=== PATIENT | female | born 1955 | race Caucasian/White ===

== ENCOUNTER 2016-05-03 06:32 | Day surgery (SDC) | payer OTHER ==
[2016-05-02 10:43] VITALS: BMI 21.2
[~2016-05-03 06:32] MED LIST: ALPRAZolam 0.25 MG TAB PO PRN; ALPRAZolam 0.5 MG TAB PO PRN; ASPIRIN 325 MG TAB PO STA; ATORVASTATIN 80 MG TAB PO STA; NITROGLYCERIN SL TABS 0.4 MG TAB SUBLINGUAL PRN; SODIUM CHLORIDE 0.9% 1,000 ML in EMPTY BAG 1 BAG IV ONE
[2016-05-03 07:04] LABS: Glucose,Whole Blood 208 mg/dL (75-99)
[2016-05-03] MEDS ORDERED: INSULIN LISPRO (humaLOG) 300 UNIT/3 ML VIAL SQ ONE ×2 (07:12→12:17)
[2016-05-03] MEDS ORDERED: LIDOCAINE 2% INJ 20 MG/ML (20 ML MDV) ONE (07:18)
[2016-05-03] MEDS ORDERED: VERAPAMIL 2.5 MG/ML 2 ML AMP ONE (07:18)
[2016-05-03] MEDS ORDERED: fentaNYL (PF) 50 MCG/ML 2 ML AMP ONE (07:44)
[2016-05-03] MEDS ORDERED: HEPARIN SODIUM 1,000 UNIT/ML VIAL ONE (07:46)
[2016-05-03] MEDS ORDERED: fentaNYL (PF) 50 MCG/ML 2 ML AMP IV ONE (07:47)
[2016-05-03] MEDS ORDERED: LIDOCAINE 2% INJ 20 MG/ML SQ ONE (07:48)
[2016-05-03] MEDS ORDERED: MIDAZOLAM 2 MG/2 ML VIAL ONE (07:49)
[2016-05-03] MEDS ORDERED: VERAPAMIL SYRINGE (5 MG/10 ML) INTRAARTER ONE (07:50)
[2016-05-03] MEDS ORDERED: MIDAZOLAM 2 MG/2 ML VIAL IVP ONE (07:51)
[2016-05-03] MEDS ORDERED: NITROGLYCERIN 1000MCG/10ML SYRINGE INTRACORON ONE (08:08)
[2016-05-03] MEDS ORDERED: ADENOSINE 90 MG in SODIUM CHLORIDE 0.9% 60 ML IVP ONE (08:13)
[2016-05-03] MEDS ORDERED: IOHEXOL 350 MG/ML 100 ML BOTTLE INJ ONE (08:20)
[2016-05-03] MEDS ORDERED: SODIUM CHLORIDE 0.9% 1,000 ML IV ONE (08:20)
[2016-05-03 08:39] LABS: Glucose,Whole Blood 190 mg/dL (75-99)
[2016-05-03] MEDS ORDERED: RX INFO: IV CONTRAST WAS GIVEN 1 EACH MISC MISCELLANE PRN (08:41)
[2016-05-03] MEDS ORDERED: IPRATROPIUM-ALBUTEROL 3 ML NEB INHALATION PRN (08:42)
[2016-05-03] MEDS ORDERED: SODIUM CHLORIDE 0.9% 1,000 ML IV SCH (08:45)
[2016-05-03] MEDS ORDERED: LOSARTAN 25 MG TAB PO SCH (09:00)
[2016-05-03 11:50] VITALS: PULSE 90; RESP 20
[2016-05-03 12:03] LABS: Glucose,Whole Blood 256 mg/dL (75-99)
[2016-05-03 14:54] VITALS: BP 127/74
--- NOTE | 2016-05-03 21:20 | CC ---
DATE OF SERVICE: Mrs. Manley is a 60-year-old female with known history of hypertension, hyperlipidemia, diabetes mellitus, chronic tobacco use, who presented with symptoms of chest discomfort, exertional in pattern, in the cold weather while walking. She underwent stress echocardiogram that revealed borderline EKG changes. Because of the persistent symptoms, recommendation was made regarding cardiac catheterization. The procedure as well as risks and complications were discussed with the patient, who was in full understanding and agreement. PROCEDURE: Patient was brought to the clinical laboratory aides teacher in a fasting semi-sedated state after receiving fentanyl and Benadryl and achieving moderate conscious sedation state. Using Xylocaine anesthesia and Seldinger technique, a 6 Hungarian sheath was introduced in the right radial artery. Selective right and left coronary angiography was performed using 5 Hungarian 3-1/2 Bend, right and left Lila catheters. Multiple views of the coronary arteries, including hemiaxial views, were obtained. Following that, a 5 Hungarian tight pigtail catheter was introduced in the left ventricle and a 30-degree MCDANIEL view of the left ventricle was obtained. Following that, a 6 Hungarian FR4 guiding catheter was introduced into the system. After cannulating the right coronary ostium, a Doppler flow wire was introduced in the right coronary artery, positioned distally, and adenosine infusion intravenously per protocol was performed. Fraction flow reserve was calculated. Following that, catheter and sheaths were removed. Hemostasis was obtained with deployment of a TR band. There was no immediate complication. Patient was returned to her room in stable condition. Of note, patient received a total of 5000 units of intravenous heparin as well as intra-arterial Verapamil. There was no immediate complication. FINDINGS LEFT MAIN: This is a large-sized vessel bifurcating into left circumflex and left anterior descending artery. Left main coronary artery is without any obstructive disease. LEFT ANTERIOR DESCENDING CORONARY ARTERY: This is a large-sized vessel giving rise to a large diagonal branch. The left anterior descending artery in mid segment tapers down distally. It does not reach the apex. The LAD and its branches have no evidence of obstructive coronary artery disease. LEFT CIRCUMFLEX: This is a large non-dominant vessel giving rise to a large obtuse marginal branch. The left circumflex as well as its branches has no evidence of obstructive coronary artery disease. RIGHT CORONARY ARTERY: This is a large dominant vessel bifurcating into PDA and posterolateral segment and branches. The right PDA reaches toward the inferoapical wall. The right coronary artery in its mid segment has a long tubular lesion with an area of stenosis up to 50% to 60%. The rest of the vessel has no high-grade stenosis. LEFT VENTRICULOGRAM: Left ventriculogram was performed in 30-degree MCDANIEL view and revealed normal left ventricular size and systolic function. FRACTION FLOW RESERVE: Fraction flow reserve was measured at 88%. CONCLUSION: 1. Moderate disease in the long segment of the mid right coronary artery. 2. Normal left ventricular size and systolic function. 3. Lesion in the mid right coronary artery, not hemodynamically significant. RECOMMENDATION: Patient will be continued on aggressive coronary risk factor modifications with close followup of her right coronary artery lesion. Those findings and recommendations were discussed with the patient and her family, who were in full understanding and agreement. Duration of the procedure was 32 minutes.
--- NOTE | 2016-05-03 21:23 | LTR ---
May 03, 2016 RE: SindhuManju Dear Dr. Brewer, I had the pleasure of performing cardiac catheterization on Mrs. Manley at [facility] on May 03, and a full copy of the procedure note will be forwarded to you. In brief, she was found to have a moderate lesion in the mid right coronary artery with normal circumflex and LAD. Based on those findings, I proceeded to obtain fraction flow reserve of the mid right coronary artery that showed a lesion that was not hemodynamically significant. Based on those findings, I have recommended continued medical therapy with the aggressive coronary risk factor modifications you have initiated. Thank you again for allowing me to participate in her care. Please feel to call with any questions. Sincerely, KIAH WHIPPLE MD
[2016-05-04] MEDS ORDERED: ATORVASTATIN 20 MG TAB PO SCH (09:00)
[2016-05-04] MEDS ORDERED: NICOTINE 14MG/24HR PATCH TRANSDERM SCH (09:00)
[2016-05-04] MEDS ORDERED: ASPIRIN 81 MG CHEW PO SCH (09:00)
== END 2016-05-03 14:05 | disposition home or self-care (01) ==
LOC: CATHCVL 06:32
PROVIDERS: ATTEND Internal Medicine Interventional Cardiology
DX: I25.10 Atherosclerotic heart disease of native coronary artery without angina pectoris (principal); I10 Essential (primary) hypertension; Z82.49 Family history of ischemic heart disease and other diseases of the circulatory system; E78.2 Mixed hyperlipidemia; F17.210 Nicotine dependence, cigarettes, uncomplicated; E11.9 Type 2 diabetes mellitus without complications; Z79.84 Long term (current) use of oral hypoglycemic drugs; Z79.82 Long term (current) use of aspirin; Z79.899 Other long term (current) drug therapy; Z88.0 Allergy status to penicillin; Z88.2 Allergy status to sulfonamides
CPT/HCPCS: 93571; 93458; 84132; 99152; 99153; C1887; C1894; C1769; J2001; J2250; Q9967; J3010; J1644 ×2; J0153

== ENCOUNTER → 2016-06-05 | Day surgery (SDC) | payer OTHER ==
[2016-05-31 10:40] VITALS: BMI 22.0
[~2016-06-05] MED LIST changes: -ALPRAZolam 0.25 MG TAB PO PRN; -ALPRAZolam 0.5 MG TAB PO PRN; -ASPIRIN 325 MG TAB PO STA; -ATORVASTATIN 80 MG TAB PO STA; +LACTATED RINGERS 1,000 ML IV ONE; +LACTATED RINGERS 1,000 ML IV SCH; -NITROGLYCERIN SL TABS 0.4 MG TAB SUBLINGUAL PRN; +PROPOFOL 10 MG/ML 20 ML VIAL IV ONE; -SODIUM CHLORIDE 0.9% 1,000 ML in EMPTY BAG 1 BAG IV ONE
[2016-06-05 07:26] VITALS: RESP 16
[2016-06-05 07:31] LABS: Glucose,Whole Blood 196 mg/dL (75-99)
--- NOTE | 2016-06-05 08:51 | P.PCN ---
Date of Procedure: 06/05/16 Procedure(s) Performed: Procedure: Total colonoscopy. Preoperative diagnosis: Screening for neoplasia, patient has history of polyps. Postoperative diagnosis: Mild sigmoid diverticulosis with no evidence of acute diverticulitis, strictures, polyps or cancer. Preparation: HalfLytely prep. Sedation: Was provided by anesthesia. Brief clinical history: The patient is a 60-year-old female who is scheduled for this evaluation for screening for neoplasia because of history of adenomatous polyps. Her last exam was in April 2009. At this time, she has no abdominal complaints, bleeding or anemia. Procedure: With the patient on her left lateral decubitus position and after informed consent and adequate sedation, the perianal area was inspected and it did not show any fissures or fistulas. There was significant skin relaxation and redundancy. No masses were felt on digital rectal examination. The Olympus CFQ 160L video colonoscope was then inserted in the rectum in the usual fashion and advanced to the cecum. The mucosa appeared healthy. There was mild sigmoid diverticulosis noted as previously described with no evidence of acute diverticulitis or strictures. No polyps or tumors were seen. I retroflexed the endoscope in the rectum before the endoscope was withdrawn. Low -grade internal hemorrhoids were noted with no evidence of bleeding. The patient tolerated the procedure well. Plan: The patient was reassured. Discussed dietary measures and local care for hemorrhoids. She will follow-up with you as planned and I recommended a repeat exam in 5 years.
[2016-06-05 09:03] VITALS: BP 104/71; PULSE 87
== END ==
LOC: ORWHC2ENDO 07:15
DX: Z12.11 Encounter for screening for malignant neoplasm of colon (principal); Z86.010 Personal history of colon polyps; K64.8 Other hemorrhoids; K57.30 Diverticulosis of large intestine without perforation or abscess without bleeding; I25.10 Atherosclerotic heart disease of native coronary artery without angina pectoris; I10 Essential (primary) hypertension; E78.5 Hyperlipidemia, unspecified; J44.9 Chronic obstructive pulmonary disease, unspecified; F17.200 Nicotine dependence, unspecified, uncomplicated; E11.9 Type 2 diabetes mellitus without complications; Z88.0 Allergy status to penicillin; Z88.2 Allergy status to sulfonamides; Z88.8 Allergy status to other drugs, medicaments and biological substances; Z79.84 Long term (current) use of oral hypoglycemic drugs; Z79.1 Long term (current) use of non-steroidal anti-inflammatories (NSAID); Z79.899 Other long term (current) drug therapy
CPT/HCPCS: J2704; G0105

== ENCOUNTER → 2018-07-12 | Outpatient (CLI) | payer OTHER ==
--- NOTE | 2018-07-12 12:42 | CTL ---
EXAMINATION TYPE: CT Low Dose Lung DATE OF EXAM ORDERED: 07/12/2018 HISTORY: Long-term tobacco use. Lung cancer screening CT DLP: [address] CTDI: 1.53 mGy Automated exposure control for dose reduction was used. SCREENING VISIT: Initial study COMPARISON: None TECHNIQUE: Low dose computed tomography scan was performed through the chest at 1 mm thick sections a nd reconstructed images in the coronal plane at [address] DIAGNOSTIC QUALITY: Satisfactory FINDINGS: LUNG NODULES: Present, detailed below: A 5 x 3 mm right midlung anterior nodule axial image 168 No additional suspicious greater than 4 mm nodules LUNGS: COPD: Severity: Mild to moderate Fibrosis: Severity: Mild linear fibrosis bilateral bases, left greater than right posteriorly. Lymph nodes: None Other findings: None BILATERAL PLEURAL SPACE: Effusion: None Calcification: None Thickening: None Pneumothorax: None HEART: Heart Size: Normal Coronary calcification: None Pericardial effusion: Tiny OTHER FINDINGS: Upper abdomen: None Bony thorax: None Supraclavicular region: None Other: None IMPRESSION: Mild to moderate emphysematous change with 5 x 3 mm right middle lobe nodule. (Measures j ust under 4.0 mm mean axis) FOLLOW UP CT CHEST RECOMMENDATION: Annual low-dose lung screening CT CT LUNG RAD: Lung-Rad 2 Benign Appearance or Behavior
== END | disposition home or self-care (01) ==
LOC: RADCTMAIN 11:49
PROVIDERS: ATTEND Family Medicine
DX: Z12.2 Encounter for screening for malignant neoplasm of respiratory organs (principal); J43.9 Emphysema, unspecified; Z87.891 Personal history of nicotine dependence

== ENCOUNTER → 2020-12-23 | Outpatient (CLI) | payer OTHER ==
--- NOTE | 2020-12-23 10:45 | CTL ---
EXAMINATION TYPE: CT Low Dose Lung DATE OF EXAM ORDERED: 12/23/2020 HISTORY: Long-term tobacco use. Lung cancer screening CT DLP: 55.[address] CTDI: 1.6 mGy Automated exposure control for dose reduction was used. SCREENING VISIT: First after baseline COMPARISON: Prior study July 12, 2018 TECHNIQUE: Low dose computed tomography scan was performed through the chest at 1 mm thick sections a nd reconstructed images in multiple planes at 1 mm and [address] DIAGNOSTIC QUALITY: Satisfactory FINDINGS: LUNG NODULES: Present, detailed below: Stable 5.7 x 2.8 mm right middle lobe nodule axial image 164. Stable 4.0 x 3.1 mm right upper lung nodule axial image 17. LUNGS: COPD: Severity: Mild To moderate Fibrosis: Severity: Mild to moderate biapical extending posteriorly. Mild linear scarring in the base s. Lymph nodes: None Other findings: None RIGHT PLEURAL SPACE: Effusion: None Calcification: None Thickening: None Pneumothorax: None LEFT PLEURAL SPACE: Effusion: None Calcification: None Thickening: None Pneumothorax: None HEART: Heart Size: Normal Coronary calcification: None Pericardial effusion: None OTHER FINDINGS: Upper abdomen: None Bony thorax: None Supraclavicular region: None Other: None IMPRESSION: Mild to moderate emphysematous change with stable small nodules in retrospect. No new or enlarging greater than [address] LUNG RAD AND CT CHEST RECOMMENDATION: Lung-Rad 2 Benign Appearance or Behavior: Continue annual sc reening with LDCT in 12 months. S Modifier (other clinically significant findings): None
== END | disposition home or self-care (01) ==
LOC: RADCTMAIN 09:30
PROVIDERS: ATTEND Family Medicine
DX: Z12.2 Encounter for screening for malignant neoplasm of respiratory organs (principal); R91.8 Other nonspecific abnormal finding of lung field; J43.9 Emphysema, unspecified; Z72.0 Tobacco use
CPT/HCPCS: 71271

== ENCOUNTER → 2021-04-26 | Outpatient (CLI) | payer OTHER ==
--- NOTE | 2021-04-26 19:39 | BD ---
EXAMINATION TYPE: Axial Bone Density DATE OF EXAM: 04/26/2021 COMPARISON: 05.04.2009 CLINICAL HISTORY: 65 YR OLD FEMALE.....ICD-10 CODE: Z78.0 MENOPAUSAL Height: 67 Weight: 135 FRAX RISK QUESTIONS: Glucocorticoids (More than 3mos): YES (Ex: prednisone, prednisolone, methylprednisolone, dexamethasone, and hydrocortisone). Current Tobacco Use: YRD RISK FACTORS HISTORY OF: Postmenopausal woman: YES AT AGE 54 YRS OLD Hyperparathyroidism: NO Adrenal Insufficiency: NO MEDICATIONS: Prednisone or other steroids: COMBIVENT, COPD, FOR ABOUT 4-5 YRS Additional Medications: BP MEDS, DIABETIC MEDS, BYDUREON, SHOT WEEKLY, JARDIANCE, Additional History: DIABETIC, HYPERTENSION, COPD, SMOKER EXAM MEASUREMENTS: Bone mineral densitometry was performed using the Interactive Supercomputing System. Bone mineral density as measured about the Lumbar spine is: ----- L1-L4(G/cm2): 1.132 T Score Values are as follows: ----- L1: -1.1 ----- L2: -0.9 ----- L3: 0.6 ----- L4: -0.5 ----- L1-L4: -0.4 Bone mineral density has: Decreased -11.3% since study of: 05.04.2009 Bone mineral density about the R hip (g/cm2): 0.719 Bone mineral density about the L hip (g/cm2): 0.711 T Score values are as follows: -----R Neck: -1.5 -----L Neck: -1.2 -----R Total: -2.3 -----L Total: -2.4 Bone mineral density has: Decreased -26.1% since study of: 05.04.2009 FRAX%s: GRAPH PROVIDED ILLUSTRATES A 13.3% CHANCE FOR A MAJOR OSTEOPOROTIC FX AND A 3.0% FOR HIP. ....PROBABILITY FOR FX IN 10 YRS TIME IMPRESSION: Osteopenia (T Score between -2.5 and -1). However, note that measurements border on osteoporosis at t he total left hip. There is slightly increased risk of fracture and the patient may be considered for treatment. Re-Screen 2-5 years. NOTE: T-SCORE=SD OF THE YOUNG ADULT MEAN.
--- NOTE | 2021-04-27 12:37 | MM ---
Reason for exam: screening (asymptomatic). Last mammogram was performed 5 years and 4 months ago. History: Patient is postmenopausal and history of other cancer. Family history of breast cancer in mother at age 75. Took hormonal contraceptives for 7 years beginning at age 18. Physical Findings: A clinical breast exam by your physician is recommended on an annual basis and results should be correlated with mammographic findings. MG 3D Screening Mammo W/Cad Bilateral CC and MLO view(s) were taken. Prior study comparison: December 30, 2015, bilateral MG 3d screening mammo w/cad. May 04, 2009, bilateral digital screening mammogram. There are scattered fibroglandular densities. No significant changes when compared with prior studies. ASSESSMENT: Benign, BI-RAD 2 RECOMMENDATION: Routine screening mammogram of both breasts in 1 year.
== END | disposition home or self-care (01) ==
LOC: RADMAMWWP 10:11
PROVIDERS: ATTEND Family Medicine
DX: Z12.31 Encounter for screening mammogram for malignant neoplasm of breast (principal); M85.89 Other specified disorders of bone density and structure, multiple sites; M81.0 Age-related osteoporosis without current pathological fracture; Z78.0 Asymptomatic menopausal state; Z80.3 Family history of malignant neoplasm of breast
CPT/HCPCS: 77063; 77067; 77080

== ENCOUNTER → 2022-12-25 | Outpatient (CLI) | payer MEDICARE ==
--- NOTE | 2022-12-25 11:26 | CTL ---
EXAMINATION TYPE: CT Low Dose Lung DATE OF EXAM ORDERED: 12/25/2022 HISTORY: Z87.891 PERSONAL HX OF TOBACCO DEPENDENCE. Lung cancer screening. Current smoker, 50 pack [address] DLP: 64.[address] CTDI: 1.8 mGy Automated exposure control for dose reduction was used. SCREENING VISIT: Follow-up COMPARISON: CT low-dose lung cancer screening 12/23/2020, 07/12/2018 TECHNIQUE: Low dose computed tomography scan was performed through the chest at 1 mm thick sections a nd reconstructed images in multiple planes at 1 mm and [address] DIAGNOSTIC QUALITY: Satisfactory FINDINGS: LUNG NODULES: Stable right middle lobe 4 mm pulmonary nodule (series 6, image 35). No new or enlargin g pulmonary nodules. LUNGS: COPD: Severity: Mild Fibrosis: Severity: None Lymph nodes: None Other findings: Biapical pleural-parenchymal scarring redemonstrated. RIGHT PLEURAL SPACE: Effusion: None Calcification: None Thickening: None Pneumothorax: None LEFT PLEURAL SPACE: Effusion: None Calcification: None Thickening: None Pneumothorax: None HEART: Heart Size: Normal Coronary Calcification: None Pericardial Effusion: None OTHER FINDINGS: Upper abdomen: None Bony thorax: Prominent Schmorl's node involving the superior endplate of the L1 vertebral body. Supraclavicular region: None Other: None IMPRESSION: 1. Stable right middle lobe 4 mm pulmonary nodule. No new or enlarging pulmonary nodules. 2. Mild COPD changes. CT LUNG RAD AND CT CHEST RECOMMENDATION: Lung-Rad 2 Benign Appearance or Behavior: Continue annual sc reening with LDCT in 12 months. S Modifier (other clinically significant findings): None
== END | disposition home or self-care (01) ==
LOC: RADCTMAIN 10:48
PROVIDERS: ATTEND Family Medicine
DX: Z12.2 Encounter for screening for malignant neoplasm of respiratory organs (principal); J44.9 Chronic obstructive pulmonary disease, unspecified; R91.1 Solitary pulmonary nodule; F17.210 Nicotine dependence, cigarettes, uncomplicated
CPT/HCPCS: 71271